=== PATIENT | male | born 1990 | race African-American/Black ===

== ENCOUNTER 2017-08-23 20:55 | Emergency (ER) | payer MEDICAID, OTHER ==
[~2017-08-23 20:55] MED LIST: AMOX500T PO; CLIN150 PO; DILA100C PO; FIORTAB4 PO; TRAZ100 PO; TYLCOD5S PO
[2017-08-23 21:07] VITALS: BP 135/99; PULSE 103; RESP 20; TEMP 98; O2SAT 97
[2017-08-23] MEDS ORDERED: KETOROLAC TROMETHAMINE 30 MG/ML (IVP) VIAL IV PUSH ONE (21:45)
[2017-08-23] MEDS ORDERED: SODIUM CHLOR 0.9% 1000 ML INJ 1,000 ML IV ONE (21:45)
[2017-08-23] MEDS ORDERED: diphenhydrAMINE HCL 50 MG/ML VIAL IV PUSH ONE (21:45)
--- NOTE | 2017-08-23 21:47 | PD ---
HPI Chief Complaint: Seizure Time Seen by Provider: 21:29 Travel History International Travel<30 days: No Contact w/Intl Traveler<30days: No Traveled to known affect area: No History of Present Illness HPI 27-year-old male with PMH of epilepsy presents to the ED via EMS under police custody after witnessed seizure lasting approximately 1 minute to 90 seconds. On arrival the patient is alert, oriented, demanding pain medications. While being evaluated by the nurse the patient suddenly began to shake on one half of his body. During this time he was still demanding pain medications. EMS reports that the patient had 2 seizure-like activity in the back of the ambulance, was administered IM Versed with immediate resolution of symptoms. On my exam the patient is alert, following commands, complaining of 10/10 "all over" headache. He endorses nausea. He states he's had headaches like this the past. He states he can't remember what seizure medication he takes. States that he can't remember the events of the day. PFSH Past Medical History Diminished Hearing: No Immunizations Current: Yes Seizures: Yes (LAST SEIZURE 1 YR AGO; MOTHER STATES HE IS SUPPOSED TO BE ON MEDS FOR IT) Past Surgical History Oral Surgery: Yes (TOOTH EXTRACTION) Social History Alcohol Use: Yes Tobacco Use: No Substance Use: No Allergies-Medications (Allergen,Severity, Reaction): Coded Allergies: codeine (Unverified Allergy, Unknown, Seizures, 08/23/17) Reported Meds & Prescriptions Reported Meds & Active Scripts Active Review of Systems Except as stated in HPI: all other systems reviewed are Neg Physical Exam Narrative GENERAL: Well-nourished, well-developed -[place] Citizen male in no acute distress. SKIN: Focused skin assessment warm/dry. HEAD: Normocephalic. EYES: No scleral icterus. No injection or drainage. Pupils 2-3 mm and responsive bilaterally. NECK: Supple, trachea midline. No JVD or lymphadenopathy. CARDIOVASCULAR: Regular rate and rhythm without murmurs, gallops, or rubs. RESPIRATORY: Breath sounds clear and equal bilaterally. No accessory muscle use. GASTROINTESTINAL: Abdomen soft, non-tender, nondistended. Active bowel sounds. MUSCULOSKELETAL: No cyanosis, or edema. NEUROLOGICAL: Awake and alert. Cranial nerves II through XII intact. Motor and sensory grossly within normal limits. Five out of 5 muscle strength in all muscle groups. Normal speech. BACK: Nontender without obvious deformity. No CVA tenderness. Data Data Last Documented VS Vital Signs Date Time Temp Pulse Resp B/P (MAP) Pulse Ox O2 Delivery O2 Flow Rate FiO2 08/23/17 21:07 98.0 103 20 135/99 (111) 97 Orders Orders Complete Blood Count With Diff (08/23/17 21:39) Basic Metabolic Panel (Bmp) (08/23/17 21:39) Phenytoin (Dilantin) (08/23/17 21:39) Drug Screen, Random Urine (08/23/17 21:39) ^ Insert Iv (08/23/17 21:42) Sodium Chlor 0.9% 1000 Ml Inj (Ns 1000 M (08/23/17 21:45) Creatine Kinase (Cpk) (08/23/17 21:42) Ketorolac Inj (Toradol Inj) (08/23/17 21:45) Diphenhydramine Inj (Benadryl Inj) (08/23/17 21:45) Labs Laboratory Tests Test 08/23/17 22:05 White Blood Count 8.3 TH/MM3 Red Blood Count 5.82 MIL/MM3 Hemoglobin 15.3 GM/DL Hematocrit 46.4 % Mean Corpuscular Volume 79.8 FL Mean Corpuscular Hemoglobin 26.3 PG Mean Corpuscular Hemoglobin Concent 33.0 % Red Cell Distribution Width 13.8 % Platelet Count 242 TH/MM3 Mean Platelet Volume 10.2 FL Neutrophils (%) (Auto) 83.2 % Lymphocytes (%) (Auto) 10.8 % Monocytes (%) (Auto) 5.3 % Eosinophils (%) (Auto) 0.3 % Basophils (%) (Auto) 0.4 % Neutrophils # (Auto) 6.9 TH/MM3 Lymphocytes # (Auto) 0.9 TH/MM3 Monocytes # (Auto) 0.4 TH/MM3 Eosinophils # (Auto) 0.0 TH/MM3 Basophils # (Auto) 0.0 TH/MM3 CBC Comment DIFF FINAL Differential Comment Blood Urea Nitrogen 6 MG/DL Creatinine 1.08 MG/DL Random Glucose 106 MG/DL Calcium Level 9.5 MG/DL Sodium Level 139 MEQ/L Potassium Level 4.0 MEQ/L Chloride Level 107 MEQ/L Carbon Dioxide Level 25.6 MEQ/L Anion Gap 6 MEQ/L Estimat Glomerular Filtration Rate 100 ML/MIN MDM Medical Decision Making Medical Screen Exam Complete: Yes Emergency Medical Condition: Yes Differential Diagnosis Seizure versus pseudoseizure versus electrolyte abnormality versus malingering versus other Narrative Course 7-year-old male PMH epilepsy presents to the ED by EMS under police custody after witnessed seizure lasting approximately 1 minute to 90 seconds. On arrival patient is alert and oriented, demanding pain medications. EMS reports pseudoseizure activity in the back of the ambulance, resolved with immediately with IM Versed. Nurse reports similar episode in the ambulance hallway. Patient was conscious and demanding medications, abusing establish verbally throughout the events. On my exam the patient is not postictal. He is following commands and has no focal neuro deficits. CBC and CMP unremarkable. CK and phenytoin level pending. Patient signed out to Dr. Duval at end of shift. Please see his note for disposition. Berta Moreno Aug 23, 2017 21:47
[2017-08-23 22:33] LABS: AUTOMATED NEUTROPHIL # 6.9 TH/MM3 (1.8-7.7); BASOPHIL % 0.4 % (0.0-2.0); EOSINOPHIL % 0.3 % (0.0-4.0); HEMATOCRIT 46.4 % (39.0-51.0); HEMOGLOBIN 15.3 GM/DL (13.0-17.0); LYMPH % 10.8 % (9.0-44.0); LYMPHOCYTE # 0.9 TH/MM3 (1.0-4.8); MEAN CELL VOLUME 79.8 FL (80.0-100.0); MEAN CORPUSCULAR HEMOGLOBIN 26.3 PG (27.0-34.0); MEAN PLATELET VOLUME 10.2 FL (7.0-11.0); MONO % 5.3 % (0.0-8.0); MONOCYTE # 0.4 TH/MM3 (0-0.9); NEUT % 83.2 % (16.0-70.0); PLATELET COUNT 242 TH/MM3 (150-450); RED BLOOD COUNT 5.82 MIL/MM3 (4.50-5.90); RED CELL DISTRIBUTION WIDTH 13.8 % (11.6-17.2); WHITE BLOOD COUNT 8.3 TH/MM3 (4.0-11.0)
[2017-08-23 23:01] LABS: BICARBONATE 25.6 MEQ/L (21.0-32.0); CALCIUM 9.5 MG/DL (8.5-10.1); CREATININE 1.08 MG/DL (0.60-1.30)
[2017-08-23 23:14] LABS: PHENYTOIN (DILANTIN) 1.2 MCG/ML (10.0-20.0)
[2017-08-23 23:20] VITALS: RESP 16
[2017-08-23] MEDS ORDERED: FOSPHENYTOIN INJ 1,000 MGPE in SODIUM CHLORIDE 0.9% INJ 50 ML IV ONE (23:30)
--- NOTE | 2017-08-24 01:07 | PD ---
Physical Exam Date Seen by Provider: Aug 24, 2017 Time Seen by Provider: 00:30 Narrative Patient's Dilantin level was 1.2 he is loaded with fosphenytoin 1 g over one minutes he is safe to be discharged him follow-up as an outpatient and told to be compliant with his Dilantin discharged Data Data Last Documented VS Vital Signs Date Time Temp Pulse Resp B/P (MAP) Pulse Ox O2 Delivery O2 Flow Rate FiO2 08/23/17 23:20 16 08/23/17 21:07 98.0 103 135/99 (111) 97 Orders Orders Complete Blood Count With Diff (08/23/17 21:39) Basic Metabolic Panel (Bmp) (08/23/17 21:39) Phenytoin (Dilantin) (08/23/17 21:39) Drug Screen, Random Urine (08/23/17 21:39) ^ Insert Iv (08/23/17 21:42) Sodium Chlor 0.9% 1000 Ml Inj (Ns 1000 M (08/23/17 21:45) Creatine Kinase (Cpk) (08/23/17 21:42) Ketorolac Inj (Toradol Inj) (08/23/17 21:45) Diphenhydramine Inj (Benadryl Inj) (08/23/17 21:45) Fosphenytoin Inj (Cerebyx Inj) (08/23/17 23:30) CKMB (08/23/17 22:05) CKMB% (08/23/17 22:05) Ed Discharge Order (08/24/17 01:04) Labs Laboratory Tests Test 08/23/17 22:05 White Blood Count 8.3 TH/MM3 Red Blood Count 5.82 MIL/MM3 Hemoglobin 15.3 GM/DL Hematocrit 46.4 % Mean Corpuscular Volume 79.8 FL Mean Corpuscular Hemoglobin 26.3 PG Mean Corpuscular Hemoglobin Concent 33.0 % Red Cell Distribution Width 13.8 % Platelet Count 242 TH/MM3 Mean Platelet Volume 10.2 FL Neutrophils (%) (Auto) 83.2 % Lymphocytes (%) (Auto) 10.8 % Monocytes (%) (Auto) 5.3 % Eosinophils (%) (Auto) 0.3 % Basophils (%) (Auto) 0.4 % Neutrophils # (Auto) 6.9 TH/MM3 Lymphocytes # (Auto) 0.9 TH/MM3 Monocytes # (Auto) 0.4 TH/MM3 Eosinophils # (Auto) 0.0 TH/MM3 Basophils # (Auto) 0.0 TH/MM3 CBC Comment DIFF FINAL Differential Comment Blood Urea Nitrogen 6 MG/DL Creatinine 1.08 MG/DL Random Glucose 106 MG/DL Calcium Level 9.5 MG/DL Sodium Level 139 MEQ/L Potassium Level 4.0 MEQ/L Chloride Level 107 MEQ/L Carbon Dioxide Level 25.6 MEQ/L Anion Gap 6 MEQ/L Estimat Glomerular Filtration Rate 100 ML/MIN Total Creatine Kinase 539 U/L Creatine Kinase MB 2.2 NG/ML Creatine Kinase MB % 0.4 % Phenytoin (Dilantin) Level 1.2 MCG/ML MDM Supervised Visit with RADHA: Yes Diagnosis Primary Impression: Seizure Patient Instructions: General Instructions, Generalized Tonic Clonic Seizures ( ED) Disposition: [address] LAW ENFORCEMNT Abdiaziz Duval MD Aug 24, 2017 01:07
== END 2017-08-24 01:32 ==
LOC: NEDAMB 20:55
DX: G40.909 Epilepsy, unspecified, not intractable, without status epilepticus (principal); R51 Headache
CPT/HCPCS: 80048; 80185; 82550; 82552; 85025; 96361; 96365; 96375; 99284; J1200; J1885; J7030; Q2009